=== PATIENT | female | born 1970 | race Caucasian/White ===

== ENCOUNTER 2018-01-21 14:32 | Observation (INO) ==
[2018-01-21] MEDS ORDERED: Naloxone 0.4 MG/ML INJ IVP PRN (17:53)
--- NOTE | 2018-01-21 18:07 | Internal Med History&Physical ---
<PedroBrice P - Last Filed: 01/21/18 17:56> Date of Encounter: 01/21/18 Time of Encounter: 17:30 Internal Medicine - H&P: HPI Chief complaint: Pneumovax Site Reaction Admitted From: Home Plans for Post Hospital Care: Home History of present illness: Ms. Preciado is a 47 year old female with past medical history significant for HIV and obstructive sleep apnea who presents from [facility] for complaints of right arm redness, pain, and swelling starting Monday01/19/18 after receiving Pneumovax injection Monday01/17/18. Also complains of nausea, vomiting, diarrhea, chills, and fatigue for same duration. No confirmed fever. Last episode of vomiting was yesterday and last episode of diarrhea was this morning. States redness has been increasing in size. No chest pain, shortness of breath, abdominal pain, or headache. No alleviating or exacerbating factors. No treatment prior to presentation to ER. Has history of HIV, states well controlled on current regimen, no viral load detectable for many years. Initially received Vancomycin in [facility] but had reaction including rash and pruritus which was alleviated with Benadryl so antibiotic was stopped and Levaquin was started. Reports Pneumovax injection in past with no side effects. Ultrasound of site at [facility] reported without fluid but cobblestoning was present. Past Med Surg Social Fam HX - Past Medical History Medical history: HIV/AIDS, other Additional medical history: ELIAS Psychiatric history: anxiety, depression - Past Surgical History Surgical History: hysterectomy Additional surgical history: tonsillectomy, adenoidectomy, shoulder arthroscopy, knee arthroscopy, A&P repair, bladder sling - Social History Smoking Status: Former smoker Smokeless Tobacco Status: No Alcohol use: rarely Drug use: none - Family History Father Hx Family Cardiac Disorders: Yes (CAD) Hx Family Endocrine Disorder: Yes (DM) Mother Hx Family Musculoskeletal Disorders: Yes (Osteoarthritis) Internal Medicine - H&P: Meds Allergy/AdvReac Type Severity Reaction Status Date / Time cephalexin [From Keflex] Allergy Rash Verified 01/21/18 12:01 midazolam [From Versed] Allergy Rash Verified 01/21/18 12:01 Penicillins [PCN] Allergy Rash Verified 01/21/18 12:01 vancomycin AdvReac Rash Verified 01/21/18 16:47 All Systems PM: A 10-system review of systems was performed and is negative for pertinent findings except as documented above in the HPI. - Constitutional Vitals: Temp Pulse Resp BP Pulse Ox 98.6 F 100 18 155/74 97 01/21/18 16:27 01/21/18 16:27 01/21/18 16:27 01/21/18 16:27 01/21/18 16:40 Exam: General: Alert and oriented. Skin:Normal color, no rash. Irregular shaped redness with warmth noted to right upper extremity measuring 4 inches tall by 5 inches wide. No drainage or signs of abscess. HEENT:Pupils equal, round and reactive. Cardiovascular:Normal S1 & S2, no rubs, murmurs or gallops. No JVD. Pulse regular. Lungs:Normal breath sounds, no wheezes or crackles. Abdomen:Soft, non-tender, no rigidity. Extremities:No deformity, no edema or tenderness, no joint swelling or clubbing. Right upper extremity skin changes as noted above. RUE distal PMS intact. Neurological:Normal cognition and motor skills. Pulses:Carotid and radial pulses normal +2. Rest of the physical exam is non contributory. - Assessment and plan (1) Right arm cellulitis Status: Suspected Assessment and plan: Infectious Disease consulted. Levaquin given in [facility] [facility], continue same tomorrow and add Bactrim per ID. Repeat a.m. labs. Blood cultures obtained at [facility] pending. (2) Increased white blood cell count Status: Acute Assessment and plan: Plan as stated above. Qualifiers: Leukocytosis type: unspecified Qualified Code(s): D72.829 - Elevated white blood cell count, unspecified (3) HIV (human immunodeficiency virus infection) Status: Chronic Assessment and plan: Continue home medications once reviewed and updated in system. - Time Spent With Patient Total time spent is greater than 50% in coordination of care (as documented) at patient's floor/unit and/or counseling patient: - VTE Reasons for not Prescribing Prophylaxis: Treatment not Indicated - Low risk for VTE <Brooke Hutchinson - Last Filed: 01/29/18 08:07> Internal Medicine - H&P: HPI History of present illness: Ms. Preciado is a 47 year old female All Systems PM: A 10-system review of systems was performed and is negative for pertinent findings except as documented above in the HPI. - Constitutional Vitals: Temp Pulse Resp BP Pulse Ox 97.6 F 76 16 118/73 100 01/23/18 11:26 01/23/18 11:26 01/23/18 11:26 01/23/18 11:26 01/23/18 11:26 Internal Med - H&P Results - Labs CBC & Chem 7: 01/23/18 08:49 01/23/18 08:49 - Assessment and plan (1) Right arm cellulitis Status: Acute (2) Increased white blood cell count Status: Acute Qualifiers: Leukocytosis type: unspecified Qualified Code(s): D72.829 - Elevated white blood cell count, unspecified (3) HIV (human immunodeficiency virus infection) Status: Chronic - Time Spent With Patient Total time spent is greater than 50% in coordination of care (as documented) at patient's floor/unit and/or counseling patient: - Attending Attestation I personally and independently interviewed and examined the patient , and I reviewed the patient's medical record . I am in agreement with proposed assessment and proposed treatment plan. I discussed my findings and recommendation with the patient and answer his questions. The patient's medical records were edited to accurately reflect this encounter.
[2018-01-21] MEDS ORDERED: Acetaminophen 325 MG TABLET PO ONE (19:22)
[2018-01-21] MEDS: Sulfamethoxazole/Trimeth DS 1 EACH TABLET PO SCH (19:42)
[2018-01-22 05:53] LABS: Alanine Aminotransferase 20 Units/L (7-52); Albumin 3.4 g/dL (3.5-5.7); Albumin/Globulin Ratio 1.5 (1.1-2.2); Alkaline Phosphatase 64 Units/L (34-104); Aspartate Amino Transferase 14 Units/L (13-39); BUN/Creatinine Ratio 13 (6-26); Bilirubin,Total 1.3 mg/dL (0.3-1.0); Blood Urea Nitrogen 10 mg/dL (6-20); Calcium 8.6 mg/dL (8.6-10.3); Carbon Dioxide 24 mEq/L (23-29); Chloride 108 mEq/L (98-107); Globulin 2.2 g/dL (2.4-3.5); Glucose 97 mg/dL (70-105); Osmolality,Calculated 285 (280-300); Potassium 3.5 mEq/L (3.5-5.1); Sodium 138 mEq/L (136-145); Total Protein 5.6 g/dL (6.4-8.9); eGFR For Non-African Americans > 60 (> 60)
[2018-01-22 07:29] LABS: Basophils % 0.3 %; Eosinophils # 0.2 K/mcL (0.0-0.6); Eosinophils % 1.5 %; Hematocrit 31.9 % (35.3-44.9); Hemoglobin 11.7 g/dL (11.5-15.4); Immature Granulocytes % 0.4 % (0-4); Lymphocytes # 1.3 K/mcL (0.6-4.6); Lymphocytes % 9.3 %; Mean Corpuscular HGB Conc 36.7 g/dL (31.6-35.5); Mean Corpuscular Hemoglobin 32.8 pg (28.0-33.3); Mean Platelet Volume 9.6 fL (9.4-12.4); Monocytes # 1.3 K/mcL (0.0-1.3); Monocytes % 9.3 %; Neutrophils # 10.7 K/mcL (1.6-8.9); Platelet Count 196 K/mcL (140-400); Red Blood Count 3.57 M/mcL (3.82-4.97); Red Cell Distribution Width 11.9 % (11.5-14.5); Segmented Neutrophils % 79.2 %
[2018-01-22 07:30] LABS: Mean Corpuscular Volume 89.4 fL (83.0-100.0)
[2018-01-22] MEDS: Levofloxacin 750 MG/150 ML 750 MG/150 ML BAG IVPB SCH (09:29)
[2018-01-22] MEDS: Sulfamethoxazole/Trimeth DS 1 EACH TABLET PO SCH ×2 (09:30→19:54)
--- NOTE | 2018-01-22 11:05 | Internal Med Progress Note ---
Hospitalist Progress Note - Encounter Date of Encounter: 01/22/18 Time of Encounter: 11:02 - Subjective Interval History: Patient with history of HIV per patient which is now controlled, obstructive sleep apnea patient admitted with the right arm cellulitis started on Levaquin infection disease also consult evaluation in progress has some nausea and diarrhea Follow-up evaluation today patient is feeling better no more nausea vomiting no diarrhea the patient feeling better white count is also dowwn she had low-grade fever of 99 - Exam Vitals: Temp Pulse Resp BP Pulse Ox 97.9 F 87 16 104/70 99 01/22/18 07:00 01/22/18 07:00 01/22/18 07:00 01/22/18 07:00 01/22/18 07:00 Exam: General: Alert and oriented. Skin:Normal color, no rash. Irregular shaped redness with warmth noted to right upper extremity measuring 4 inches tall by 5 inches wide. No drainage or signs of abscess. HEENT:Pupils equal, round and reactive. Cardiovascular:Normal S1 & S2, no rubs, murmurs or gallops. No JVD. Pulse regular. Lungs:Normal breath sounds, no wheezes or crackles. Abdomen:Soft, non-tender, no rigidity. Extremities:No deformity, no edema or tenderness, no joint swelling or clubbing. Right upper extremity skin changes as noted above. RUE distal PMS intact. Neurological:Normal cognition and motor skills. Pulses:Carotid and radial pulses normal +2. Rest of the physical exam is non contributory. - Assessment and Plan (1) Leukocytosis Current Visit: No Status: Acute Assessment and Plan: Due to right arm cellulitis white count is coming down (2) Right arm cellulitis Current Visit: Yes Status: Acute Assessment and Plan: Patient started on Levaquin patient diseases also consulted for further evaluation (3) Increased white blood cell count Current Visit: Yes Status: Acute (4) HIV (human immunodeficiency virus infection) Current Visit: Yes Status: Chronic Assessment and Plan: Per Patient the HIV is under control - Time Spent with Patient Total time spent is greater than 50% in coordination of care (as documented) at patient's floor/unit and/or counseling patient: Internal Medicine: Result - Labs CBC & Chem 7: 01/22/18 07:01 01/22/18 04:54 Labs: Short CBC 01/22/18 Range/Units 07:01 WBC 13.5 H (4.3-11.1) K/mcL Hgb 11.7 D (11.5-15.4) g/dL Hct 31.9 L (35.3-44.9) % Plt Count 196 (140-400) K/mcL Neutrophils # 10.7 H (1.6-8.9) K/mcL BMP 01/22/18 04:54 Sodium 138 Potassium 3.5 Chloride 108 H Carbon Dioxide 24 BUN 10 Creatinine 0.75 Glucose 97 Calcium 8.6 Liver Function 01/22/18 Range/Units 04:54 Total Bilirubin 1.3 H (0.3-1.0) mg/dL AST 14 (13-39) Units/L ALT 20 (7-52) Units/L Alkaline Phosphatase 64 (34-104) Units/L Albumin 3.4 L (3.5-5.7) g/dL - VTE Reasons for not Prescribing Prophylaxis: Treatment not Indicated - Low risk for VTE Consult Discharge Plan - Plan Referrals: NONE,PCP [Primary Care Provider] - (1) Leukocytosis Qualifiers: Leukocytosis type: unspecified Qualified Code(s): D72.829 - Elevated white blood cell count, unspecified (3) Increased white blood cell count Qualifiers: Leukocytosis type: unspecified Qualified Code(s): D72.829 - Elevated white blood cell count, unspecified
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
[2018-01-23] MEDS: Sulfamethoxazole/Trimeth DS 1 EACH TABLET PO SCH (08:07)
[2018-01-23] MEDS: Levofloxacin 750 MG/150 ML 750 MG/150 ML BAG IVPB SCH (08:07)
[2018-01-23 09:01] LABS: Basophils % 0.3 %; Eosinophils # 0.2 K/mcL (0.0-0.6); Eosinophils % 2.3 %; Hematocrit 33.6 % (35.3-44.9); Hemoglobin 11.8 g/dL (11.5-15.4); Immature Granulocytes % 0.6 % (0-4); Lymphocytes % 11.5 %; Mean Corpuscular HGB Conc 35.1 g/dL (31.6-35.5); Mean Corpuscular Hemoglobin 32.2 pg (28.0-33.3); Mean Corpuscular Volume 91.8 fL (83.0-100.0); Mean Platelet Volume 9.3 fL (9.4-12.4); Monocytes # 0.6 K/mcL (0.0-1.3); Monocytes % 6.9 %; Neutrophils # 6.9 K/mcL (1.6-8.9); Platelet Count 244 K/mcL (140-400); Red Blood Count 3.66 M/mcL (3.82-4.97); Red Cell Distribution Width 11.9 % (11.5-14.5); Segmented Neutrophils % 78.4 %
[2018-01-23 09:21] LABS: BUN/Creatinine Ratio 15 (6-26); Blood Urea Nitrogen 11 mg/dL (6-20); Carbon Dioxide 23 mEq/L (23-29); Chloride 106 mEq/L (98-107); Glucose 125 mg/dL (70-105); Osmolality,Calculated 285 (280-300); Potassium 3.9 mEq/L (3.5-5.1); Sodium 137 mEq/L (136-145); eGFR For Non-African Americans > 60 (> 60)
--- NOTE | 2018-01-23 11:26 | Infectious Disease Progress No ---
Date of Encounter: 01/23/18 Time of Encounter: 10:46 - Assessment and Plan (1) Right arm cellulitis Status: Acute Location: Right upper extremity. Causative organism: Unclear. Nonpurulent. Likely secondary to Pneumovax injection site. Clinically improved. The patient had a reaction to vancomycin in the ER, but did receive about half the dose. Bactrim was started last night. Continue Bactrim 1 by mouth twice a day. (day 3) DC Levaquin and start doxycycline 100 mg by mouth twice a day Discussed with the hospitalist group Patient insisting on leaving. 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 Patient also advised to take probiotics and call us if she gets bad diarrhea or yeast infection Duration of treatment depends on the clinical picture, but likely a total of 14 days. Can likely transition to by mouth Levaquin 750 mg daily and continue Bactrim DS 1 tab by mouth twice a day to complete the course of treatment when ready for discharge. Treat through 02/03/18. Monitor renal function and dose-adjust antibiotics. (2) HIV (human immunodeficiency virus infection) Status: Chronic Diagnosed 23 years ago[address] with Dr. Nettles. Most recent CD4 count 10/2017 438. Continue home regimen of Kaletra abd Truvada. - Subjective Interval history: Patient seen and examined. No acute events noted overnight. Patient states overall she feels much better and wants to go home. She denies any fevers or chills or rigors. Denies chest pain, shortness of breath, or cough. She does report episode of night sweats last night. She denies any headache or neck pain. States the myalgias have resolved. She denies any nausea or vomiting. She does report one episode of diarrhea last night, but denies any associated abdominal pain or cramping. She denies any oral thrush or any skin lesions. She states her right upper extremity is much less red and much less painful and the range of motion of her arm is markedly improved. Infect Dis PN-Objective Data - Labs CBC & Chem 7: 01/23/18 08:49 01/23/18 08:49 Labs: Laboratory Results - last 24 hr 01/23/18 01/23/18 08:49 08:49 WBC 8.8 RBC 3.66 L Hgb 11.8 Hct 33.6 L MCV 91.8 MCH 32.2 MCHC 35.1 RDW 11.9 Plt Count 244 MPV 9.3 L Immature Gran % 0.6 Seg Neutrophils % 78.4 Lymphocytes % 11.5 Monocytes % 6.9 Eosinophils % 2.3 Basophils % 0.3 Neutrophils # 6.9 Lymphocytes # 1.0 Monocytes # 0.6 Eosinophils # 0.2 Basophils # 0.0 Sodium 137 Potassium 3.9 Chloride 106 Carbon Dioxide 23 BUN 11 Creatinine 0.72 Est GFR ( Amer) > 60 Est GFR (Non-Af Amer) > 60 BUN/Creatinine Ratio 15 Glucose 125 H Calculated Osmolality 285 Calcium 9.0 Exam - Constitutional Vitals: Temp Pulse Resp BP Pulse Ox 98.6 F 86 18 98/58 100 01/23/18 07:09 01/23/18 07:09 01/23/18 07:09 01/23/18 07:09 01/23/18 07:09 General appearance: average body habitus, cooperative, no acute distress - Head Head exam: Present: atraumatic, normal inspection, normocephalic - Eye Eye exam: Present: EOMI, normal appearance, PERRL Pupils: Present: normal accommodation - ENT ENT exam: Present: mucous membranes moist - Neck Neck exam: Present: normal inspection - Respiratory Respiratory exam: Present: CTAB. Absent: rales, respiratory distress, rhonchi, wheezes - Cardiovascular Cardiovascular exam: Present: RRR, +S1, +S2 - GI/Abdominal GI/Abdominal exam: Present: normal bowel sounds, soft. Absent: distended, tenderness - Extremities Exam Extremities exam: Present: tenderness (Right deltoid). Absent: joint swelling, normal inspection (Erythema to the right upper arm is markedly improved. The area remains somewhat tender, but no fluctuance or warmth noted. Range of motion of the upper extremity is improved.), pedal edema - Neurological Exam Neurological exam: Present: alert, oriented X3, no focal deficits - Psychiatric Psychiatric exam: Present: normal affect, normal mood - Skin Skin exam: Present: dry, intact, normal color, warm - VTE Reasons for not Prescribing Prophylaxis: Treatment not Indicated - Low risk for VTE Consult Discharge Plan - Plan Instructions: Sulfamethoxazole/Trimethoprim (By mouth), Doxycycline (By mouth), Cellulitis (DC), Human Immunodeficiency Virus Transmission (GEN) Referrals: Fabian Nettles MD [Primary Care Provider] - 01/30/18 4:00 pm Prescriptions: RX: Doxycycline 100 mg PO BID 11 Days #22 capsule RX: Sulfamethoxazole/Trimeth DS [Bactrim Ds] 1 each PO BID 11 Days #22 tablet - Attending Attestation I examined this patient and my medical decision-making was reviewed with the Resident Physician. I agree with the documented findings, disposition and treatment plan as described except to the extent set forth below.
[2018-01-23 11:30] VITALS: BP 118/73
--- NOTE | 2018-01-23 12:26 | Discharge Summary ---
Date of Encounter: 01/23/18 Time of Encounter: 12:00 - Discharge Diagnosis (1) Right arm cellulitis Priority: Primary Status: Acute Assessment and Plan: 47 year old female with past medical history significant for HIV and obstructive sleep apnea who presents from [facility] for complaints of right arm redness, pain, and swelling starting Monday01/19/18 after receiving Pneumovax injection Monday01/17/18. Also complains of nausea, vomiting, diarrhea, chills, and fatigue for same duration. No confirmed fever. Last episode of vomiting was yesterday and last episode of diarrhea was this morning. States redness has been increasing in size. No chest pain, shortness of breath, abdominal pain, or headache. No alleviating or exacerbating factors. No treatment prior to presentation to ER. Has history of HIV, states well controlled on current regimen, no viral load detectable for many years. She was started on levaquin and bactrim and ID was consulted. She improved on this antibiotic regimen and ID recommended discharging to complete a 14 day course of bactrim and doxycycline. she was discharged in a stable condition (2) Increased white blood cell count Priority: Primary Status: Acute Qualifiers: Leukocytosis type: unspecified Qualified Code(s): D72.829 - Elevated white blood cell count, unspecified (3) HIV (human immunodeficiency virus infection) Priority: Primary Status: Chronic Hospital course: Ms. Preciado is a 47 year old female - Time Spent with Patient Total time spent providing and/or coordinating discharge services: - Discharge Medications Prescriptions: Doxycycline 100 mg PO BID 11 Days #22 capsule Sulfamethoxazole/Trimeth DS [Bactrim Ds] 1 each PO BID 11 Days #22 tablet Home Medications: Emtricitabine/Tenofovir [Truvada 200 mg-300 mg Tablet] 1 each PO DAILY 01/21/18 [History] Lopinavir/Ritonavir [Kaletra 200-50 mg Tablet] 2 tab PO DAILY 01/21/18 [History] Naproxen 550 mg PO BID 01/21/18 [History] Armodafinil 150 mg PO DAILY 01/22/18 [History] Ascorbic Acid [Vitamin C] 1,000 mg PO DAILY 01/22/18 [History] Biotin 1 mg PO DAILY 01/22/18 [History] Calcium Carbonate [Calcium] 600 mg PO DAILY 01/22/18 [History] Cholecalciferol (D-3) [Vitamin D] 5,000 unit PO DAILY 01/22/18 [History] Cinnamon Bark [Cinnamon] 1,000 mg PO DAILY 01/22/18 [History] Cyanocobalamin (Vitamin B-12) [Vitamin B12] 1,000 mcg PO DAILY 01/22/18 [History] Fish,Saf,Flx,Brg Oils/O3,6,9#2 [Ydnw-Jazq-Jtaxnu Oil Softgel] 1 tab PO DAILY 01/22/18 [History] Levocarnitine [l-Carnitine] 500 mg PO DAILY 01/22/18 [History] Multivitamin [One Daily Multivitamin] 1 each PO DAILY 01/22/18 [History] Doxycycline 100 mg PO BID 11 Days #22 capsule 01/23/18 [Rx] Sulfamethoxazole/Trimeth DS [Bactrim Ds] 1 each PO BID 11 Days #22 tablet 01/23/18 [Rx] Allergies/Adverse Reactions: Allergy/AdvReac Type Severity Reaction Status Date / Time cephalexin [From Keflex] Allergy Rash Verified 01/21/18 12:01 midazolam [From Versed] Allergy Rash Verified 01/21/18 12:01 Penicillins [PCN] Allergy Rash Verified 01/21/18 12:01 vancomycin AdvReac Rash Verified 01/21/18 16:47 Date of admission: 01/21/18 15:45 Primary care physician: Fabian Nettles MD Consults: 01/21/18 17:54 Consult to Infectious Diseases [CONS] Routine Consulting Provider: Infectious Disease Zhanna Reason for Consult: Pneumovax site reaction. Call Completed: Yes - Constitutional Vitals: Temp Pulse Resp BP Pulse Ox 97.6 F 76 16 118/73 100 01/23/18 11:26 01/23/18 11:26 01/23/18 11:26 01/23/18 11:26 01/23/18 11:26 Exam: General: Alert and oriented. Skin:Normal color, no rash. Irregular shaped redness with warmth noted to right upper extremity measuring 4 inches tall by 5 inches wide. Improved. HEENT:Pupils equal, round and reactive. Cardiovascular:Normal S1 & S2, no rubs, murmurs or gallops. No JVD. Pulse regular. Lungs:Normal breath sounds, no wheezes or crackles. Abdomen:Soft, non-tender, no rigidity. Extremities:No deformity, no edema or tenderness, no joint swelling or clubbing. Right upper extremity skin changes as noted above. RUE distal PMS intact. Neurological:Normal cognition and motor skills. Pulses:Carotid and radial pulses normal +2. Rest of the physical exam is non contributory. - Patient Status Disposition: Home, Self-Care - Discharge Instructions Instructions: Sulfamethoxazole/Trimethoprim (By mouth), Doxycycline (By mouth), Cellulitis (DC), Human Immunodeficiency Virus Transmission (GEN) Follow Up With: Fabian Nettles MD [Primary Care Provider] - 01/30/18 4:00 pm - VTE Reasons for not Prescribing Prophylaxis: Treatment not Indicated - Low risk for VTE
== END 2018-01-23 13:34 | disposition home or self-care (01) ==
LOC: 3BNU → SUATTDRO 15:45 → 3BNU 16:17
PROVIDERS: ADMIT Internal Medicine Nephrology; ATTEND Student in an Organized Health Care Education/Training Program